=== PATIENT | female | born 1980 | race Caucasian/White ===

== ENCOUNTER 2019-05-19 10:13 | Emergency (ER) | payer BC, SELFPAY ==
[2019-05-19 10:21] VITALS: BP 152/88; PULSE 66; RESP 15; TEMP 36.7; O2SAT 98; BMI 40.2
--- NOTE | 2019-05-19 11:08 | XR_ITS ---
WS: [id number] XR ankle RT min 3V* [id number] REASON FOR EXAM: injury and pain FINDINGS: The ankle mortise is normal. The tibia, fibula, and talus are all normal. There is soft tissue swelling over the lateral malleolus. The posterior shelf of the tibia was normal. XR/XR ankle RT min 3V* [id number] IMPRESSION: Soft tissue swelling.
--- NOTE | 2019-05-19 11:09 | W.ED.FALL ---
HPI - Fall General: Chief Complaint: Fall Stated Complaint: Fall-R ankle/foot pain Time Seen by Provider: 05/19/19 11:07 History of Present Illness: HPI Narrative: Patient is a 39-year-old female who comes to the ED with right ankle pain. Patient states that last night she was walking down the steps tripped and rolled her right ankle. Denies any head trauma or loss of consciousness. Patient did get an abrasion on her right elbow. She is able to ambulate but it does cause some pain when she walks. Patient is unsure of last Tetanus shot. Associated symptoms-after fall: Denies abdominal pain, chest pain, headache(s), hematuria or neck pain Review of Systems Const: Denies: fever, chills or fatigue Eyes: Denies: change in vision or eye discomfort ENMT: Denies: throat pain, painful swallowing, nasal discharge or nasal congestion Card: Denies: chest pain, palpitations, edema, swelling of feet/ankles, shortness of breath on exertion or shortness of breath when lying down Resp: Denies: shortness of breath, productive cough or non-productive cough GI: Denies: abdominal pain, nausea, vomiting, diarrhea, constipation or blood in stool : Denies: flank pain, painful urination or blood in urine Musc: Reports: joint pain (right ankle) and joint swelling (mild swelling around right ankle); Denies: neck pain, back pain or extremity swelling Skin/Breast: Denies: rash or new lesion Neuro: Denies: headache, numbness in extremities or weakness in extremities PFS ED PFSH: Social History Smoking and tobacco status: never smoked Female Reproductive History: Date of last menstrual period: 05/12/19 Physical Exam Const: COMMON NORMALS: oriented x3 HENMT: COMMON NORMALS: normocephalic HEAD & SCALP: normocephalic MOUTH: oral and palatal mucosa normal THROAT: posterior oropharynx normal and uvula midline Neck/C-Spine: COMMON NORMALS: supple GENERAL: Yes normal visual inspection Resp: COMMON NORMALS: normal respiratory effort, no retractions, no use of accessory muscles and clear to auscultation bilaterally AUSCULTATION: clear to auscultation bilaterally Cardio: COMMON NORMALS: regular rate, regular rhythm, S1 normal heart sound, S2 normal heart sound, no gallops, no clicks, no murmurs and peripheral pulses 2+ throughout RATE: regular rate RHYTHM: regular rhythm HEART SOUNDS: S1 normal and S2 normal PERIPHERAL PULSES: pulses 2+ throughout GI: COMMON NORMALS: normal to inspection, nondistended, normoactive bowel sounds, soft to palpation, non-tender and no masses PALPATION: Yes soft : COMMON NORMALS: Yes no CVA tenderness BLADDER/KIDNEY EXAM: Yes no CVA tenderness Back/Pelvis: COMMON NORMALS: no CVA tenderness Extremity: RIGHT UPPER EXTREMITY: Yes elbow joint (Small superficial abrasion on elbow skin.-not actively bleeding) Right elbow: Yes inspection RIGHT LOWER EXTREMITY: Yes ankle joint Right ankle: Yes inspection (mild swelling around right ankle joint), Yes palpation (tender on lateral medial malleolus), Yes ROM (pain during ROM) and Yes neurovascular exam (intact) Neuro: COMMON NORMALS: oriented x3 and moves all extremities Skin: COMMON NORMALS: no rashes or lesions noted GENERAL SKIN EXAM: no rashes or lesions noted and dry skin Course ED course: pt was given updated Tdap while here in the ED. Vital Signs: Vital signs: Vital Signs Temperature 98.4 F 05/19/19 13:18 Pulse Rate 62 05/19/19 13:18 Respiratory Rate 16 05/19/19 13:18 Blood Pressure 152/88 05/19/19 10:21 Pulse Oximetry 99 05/19/19 13:18 MDM - Fall Imaging Data^: Xray Ortho: Attestation: I personally reviewed and interpreted this imaging study as follows: Radiologist's impression: [address] [address] XRay Report Signed Patient: Annalisa Castorena Unit #: [id number] : 1980 Age/Sex: 39 / F ADM Date: 05/19/19 Loc: ER Room/Bed: Attending Dr: Ordering Provider/Ordering MD: Emerson Miranda Date of Service: 05/19/19 Procedure(s): XR ankle RT min 3V* 30966 Accession Number(s): [id number] Report Number: [id number] WS: [id number] XR ankle RT min 3V* [id number] REASON FOR EXAM: injury and pain FINDINGS: The ankle mortise is normal. The tibia, fibula, and talus are all normal. There is soft tissue swelling over the lateral malleolus. The posterior shelf of the tibia was normal. XR/XR ankle RT min 3V* [id number] IMPRESSION: Soft tissue swelling. Dictated By: Garcia Sifuentes DO Signed By: Garcia Sifuentes DO Signed Date/Time: 05/19/19 1133 DD/ 1131 Discharge Plan Discharge Patient Disposition: Home, Self-Care Clinical Impression: Right ankle sprain Qualifiers: Encounter type: initial encounter Involved ligament of ankle: unspecified ligament Qualified Code(s): S93.401A - Sprain of unspecified ligament of right ankle, initial encounter Condition: Stable Prescriptions: No Action metoprolol succinate 50 mg tablet extended release 24 hr 50 mg PO DAILY RF: 0 omeprazole 20 mg capsule,delayed release(DR/EC) 20 mg PO DAILY RF: 0 lisinopril-hydrochlorothiazide 10-12.5 mg tablet 1 tab PO DAILY RF: 0 Discharge Orders: Discharge Order (Routine); Ordered 05/19/19 Ordered By: Emerson Miranda Referrals: Ryan Borrego APN [Primary Care Provider] - Discharge Diet: Regular Discharge Activity: Increase activity as tolerated Patient Instructions: Ankle Sprain (ED) Activity Restrictions/Additional Instructions: Follow-up with your PCP in 7 days for reevaluation. Try to rest and use minimal weightbearing on right ankle for 24 to 48 hours and then advance activity as tolerated. Rest, ice, elevate and compress ankle using [id number] Magdiel wrap. Take ibuprofen or Aleve to help with pain. Drink plenty of fluids and stay hydrated. Stand Alone Forms: Work/School Release Discharge Date/Time: 05/19/19 13:15 Coding Level of Care Code ED [employer] Exam Comprehensive
--- NOTE | 2019-05-19 12:35 | PC.PHAR ---
PT STATES SHE HASNT TAKEN HER BLOOD PRESSURE MEDS FOR A WEEK, PRISCILAT STATES THEY LAST FILLED THOSE MEDICATIONS IN AUGUST OF 2018.
[2019-05-19] MEDS: HYDROcodone-acetaminophen 7.5-325 mg Tablet 1 TAB PO (13:03)
[2019-05-19] MEDS: tetanus-dipt-pertussis 0.5 mL SDV IM (13:04)
[2019-05-19 13:18] VITALS: PULSE 62; RESP 16; TEMP 36.9; O2SAT 99
== END 2019-05-19 13:15 | disposition home or self-care (01) ==
PROVIDERS: Emergency Provider Physician Assistant; Family Provider Nurse Practitioner Family; PCP Nurse Practitioner Family
DX: S93.401A Sprain of unspecified ligament of right ankle, initial encounter (principal); S50.311A Abrasion of right elbow, initial encounter; W10.9XXA Fall (on) (from) unspecified stairs and steps, initial encounter
CPT/HCPCS: 73610; 90471; 90715; 99281; 99283